=== PATIENT | female | born 1930 | race Caucasian/White ===

== ENCOUNTER 2017-03-20 11:22 | Outpatient (CLI) | payer MEDICARE, OTHER ==
--- NOTE | 2017-03-20 13:56 | Diagnostic Imaging Report ---
ZAC CAMACHO [facility] [address] [facility] [address] [address] Report Submission Date: March 20, 2017 11:58:43 AM CDT Patient Study Name: JOSE ALDRIDGE Date: March 20, 2017 11:39:29 AM CDT Modality Type: CR Gender: F Description: PELVIS : 34 Institution: [facility] Physician: ZAC CAMACHO Left hip 2 views Clinical history pain Technique AP and frog leg Findings: There is osteopenia. Degenerative arthritis is present the hip. No fracture lytic changes are seen. Arthritic changes are present the sacroiliac joint. Impression: Osteopenia. Degenerative arthritis Consider MRI for further evaluation Electronically signed on March 20, 2017 11:58:43 AM CDT by: Maxwell LYNN
--- NOTE | 2017-03-21 03:44 | Diagnostic Imaging Report ---
ZAC CAMACHO~ [facility] [address] [facility] [address] ~ ~ ~ ~ Report Submission Date: March 20, 2017 5:25:38 PM CDT Patient ~ Study Name: JOSE ALDRIDGE ~ Date: March 20, 2017 3:56:20 PM CDT ~ Modality Type: CR Gender: F ~ Description: LOWER EXTREMITY : 34 ~ Institution: [facility] Physician: ZAC CAMACHO ~ ~ ~ ~ Left knee Clinical history pain Technique AP lateral and sunrise views Findings: There is patellofemoral joint narrowing. Popliteal artery calcification is present. There is chondrocalcinosis. No fracture joint effusion is seen. Impression: Mild degenerative arthritis for the patient's age Prominent vascular calcification Chondrocalcinosis ~ Electronically signed on March 20, 2017 5:25:38 PM CDT by: Maxwell LYNN
== END 2017-03-20 11:24 ==
LOC: RAD 11:22
PROVIDERS: ATTEND Family Medicine
DX: M85.88 Other specified disorders of bone density and structure, other site (principal); M13.862 Other specified arthritis, left knee
CPT/HCPCS: 73562

== ENCOUNTER 2017-04-17 13:23 | Outpatient (CLI) | payer MEDICARE, OTHER ==
--- NOTE | 2017-04-17 16:27 | Diagnostic Imaging Report ---
[facility] [address] [facility] [address] [address] Report Submission Date: Apr 17, 2017 2:55:07 PM CDT Patient Study Name: JOSE ALDRIDGE Date: Apr 17, 2017 1:52:54 PM CDT Modality Type: CT\SR Gender: F Description: CT LEG W/O CONTRAST : 34 Institution: [facility] Physician: MUNIRA Examination: CT extremity History: Leg discomfort Comparison exams: Plain film dated 20 Mar 2017 Technique: Axial imaging with coronal and sagittal reconstruction. Findings: Degenerative changes involving the knee and ankle articulations. No disruption of the cortical margins. No expansile lesion. Few scattered soft tissue calcifications. No obvious soft tissue mass given technique. Impression: Articular degenerative changes. No evidence for cortical fracture or osseous lesion by CT sensitivity. Electronically signed on Apr 17, 2017 2:55:07 PM CDT by: Jason LYNN
== END 2017-04-17 13:30 ==
LOC: RAD 13:23
PROVIDERS: ATTEND Family Medicine
DX: M79.605 Pain in left leg (principal)
CPT/HCPCS: 73700

== ENCOUNTER 2017-05-06 08:23 | Outpatient (CLI) | payer MEDICARE, OTHER | END 2017-05-06 08:24 | LOC: OUT 08:23 | PROVIDERS: ATTEND General Practice | DX: N81.10 Cystocele, unspecified (principal); N81.6 Rectocele; N81.5 Vaginal enterocele | CPT/HCPCS: G0463 ==

== ENCOUNTER 2018-03-04 08:37 | Outpatient (CLI) | payer MEDICARE, OTHER | END 2018-03-04 08:40 | LOC: POD 08:37 | PROVIDERS: ATTEND Podiatrist Public Medicine | DX: L60.0 Ingrowing nail (principal); M79.675 Pain in left toe(s); M79.674 Pain in right toe(s); B35.1 Tinea unguium | CPT/HCPCS: 11721; G0463 ==

== ENCOUNTER 2019-06-10 19:45 | Outpatient (CLI) | payer MEDICARE, OTHER ==
[2019-06-10 19:55] LABS: BASOPHILS % 0.6 % (0.0-1.5); NEUTROPHILS # 6.1 # k/uL (1.4-7.7)
[2019-06-10 20:12] LABS: eGFR (Non-African) > 60
== END 2019-06-10 19:47 ==
LOC: LAB 19:45
PROVIDERS: ATTEND Family Medicine
DX: I10 Essential (primary) hypertension (principal); R56.9 Unspecified convulsions
CPT/HCPCS: 80053; 85025

== ENCOUNTER 2019-06-15 09:42 | Outpatient (CLI) | payer MEDICARE, OTHER ==
--- NOTE | 2019-06-15 10:15 | Diagnostic Imaging Report ---
ZAC CAMACHO [facility] [address] [facility] [address] [place], [place]. [address] Report Submission Date: Jun 15, 2019 10:10:35 AM CDT Patient Study Name: JOSE ALDRIDGE Date: Jun 15, 2019 9:51:26 AM CDT Modality Type: CT\SR Gender: F Description: CT BRAIN W/O CONTRAST : 34 Institution: [facility] Physician: ZAC CAMACHO Exam: CT brain without contrast. History: Seizure. Axial images through the brain are submitted along with sagittal and coronal reformatted images. The surrounding cisterns in the posterior fossa are prominent. The brainstem and cerebellum are of normal attenuation. In the supratentorial regions, no acute hemorrhage or mass effect is identified. The lateral ventricles and surrounding sulci are prominent. Confluent areas diminished attenuation adjacent to the lateral ventricles indicate small vessel disease. No extra- axial fluid collections are identified. Opacified right maxillary sinus is noted. No bony abnormalities are identified. Impression: Atrophy. Small vessel disease. Electronically signed on Jun 15, 2019 10:10:35 AM CDT by: Matthew LYNN
== END 2019-06-15 09:44 ==
LOC: RAD 09:42
PROVIDERS: ATTEND Family Medicine
DX: I99.8 Other disorder of circulatory system (principal)
CPT/HCPCS: 70450

== ENCOUNTER 2019-08-14 08:58 | Outpatient (CLI) | payer MEDICARE, OTHER ==
[2019-08-14 11:45] LABS: APPEARANCE,URINE CLEAR (CLEAR); COLOR,URINE YELLOW (YELLOW); OCCULT BLOOD,URINE NEGATIVE (NEGATIVE); UROBILINOGEN URINE 0.2 Eu (0.2-1.0)
== END 2019-08-14 09:05 ==
LOC: LAB 08:58
PROVIDERS: ATTEND Family Medicine
DX: F07.0 Personality change due to known physiological condition (principal); R41.82 Altered mental status, unspecified
CPT/HCPCS: 81002; 87086; 87186

== ENCOUNTER 2019-08-17 13:30 | Outpatient (CLI) | payer MEDICARE, OTHER ==
[2019-08-17 14:57] LABS: eGFR (Non-African) > 60
[2019-08-17 15:02] LABS: BASOPHILS % 1 % (0-2); GIANT PLATELETS PRESENT (NEGATIVE); SEGMENTED NEUTROPHILS % 66 % (39-79)
[2019-08-17 15:04] LABS: BASOPHILS % 0.6 % (0.0-1.5); NEUTROPHILS # 5.9 # k/uL (1.4-7.7)
== END 2019-08-17 13:35 ==
LOC: LAB 13:30
PROVIDERS: ATTEND Family Medicine
DX: N39.0 Urinary tract infection, site not specified (principal)
CPT/HCPCS: 36415; 80053; 85025; P9604

== ENCOUNTER 2019-09-24 14:42 | Emergency (ER) | payer MEDICARE, OTHER ==
--- NOTE | 2019-09-24 15:08 | ED Physician Documentation ---
Fall - HISTORIAN Historian: patient - HPI Stated Complaint: fall from standing position Chief Complaint: Fall Additional Information: Patient presents to ED via EMS from [facility] after falling. Patient has dementia and HTN. She has had issues with her balance for quite sometime due to Parkinsons and dementia. skilled nursing staff reports she fell from standing and hit her head. Reports no loss of consciousness and was ambulatory after the fall. Onset: just prior to arrival Where: home Context: lost balance r: moderate Associated Symptoms:: denies: no loss of consciousness Location of Pain/Injury: head Injury to Right Extremity: none Injury to Left Extremity: none - ROS CONST: no problems NEURO: denies: dizziness MS/SKIN/LYMPH: denies: weakness, numbness EYES/ENT: none CVS/RESP: denies: chest pain, shortness of breath GI/: denies: nausea, vomiting - PAST HX Past History: none Allergies/Adverse Reactions: Allergies Allergy/AdvReac Type Severity Reaction Status Date / Time buspirone [From BuSpar] Allergy Verified 09/24/19 14:52 - SOCIAL HX Smoking History: non-smoker Alcohol Use: none Drug Use: none - FAMILY HX Family History: none - VITAL SIGNS Vital Signs: Vital Signs Temp Pulse Resp BP Pulse Ox 98.3 F 89 20 173/55 98 09/24/19 14:46 09/24/19 14:46 09/24/19 14:46 09/24/19 15:03 09/24/19 14:46 - REVIEWED ASSESSMENTS Nursing Assessment Reviewed: Yes Vitals Reviewed: Yes ED Results Lab/Radiology - Orders Orders: ED Orders Category Date Time Status CT BRAIN W/O CONTRAST Stat Exams 09/24/19 Ordered Fall Physical Exam - Physical Exam General Appearance: no acute distress, alert Head: trauma (right forehead hematoma) Neck: non-tender, painless ROM Eye: PETE, EOMI ENT: no dental injury, no oral injury Resp/CVS: chest non-tender, breath sounds nml, no resp. distress, heart sounds nml Abdomen: soft, normal bowel sounds Neuro: motor nml, mood/affect nml, adz worker nml Skin: color nml Back: normal inspection Extremities: atraumatic, pelvis stable, hips non-tender Joint: joints nml - [place] Coma Score Eyes Open: Spontaneous Speech: Oriented Motor: Obeys Commands Discharge Clincal Impression: Traumatic hematoma of head Qualifiers: Encounter type: initial encounter Qualified Code(s): S00.93XA - Contusion of unspecified part of head, initial encounter Fall from standing Qualifiers: Encounter type: initial encounter Qualified Code(s): W19.XXXA - Unspecified fall, initial encounter Referrals: Mateusz Calix MD [Primary Care Provider] - 2 Days Additional Instructions: 1. Fall precautions. 2. Apply ice to affected area for next 3 days then heat to help with hematoma absorption. 3. Tylenol as needed for pain 4. Follow up with PCP within 1 week 5. Return to ER for new or worsening symptoms Condition: Stable Disposition: 01 HOME, SELF-CARE Decision to Admit: NO Date of Decison to Admit: 09/24/19 Decision Time: 15:57
--- NOTE | 2019-09-24 15:49 | Diagnostic Imaging Report ---
PATIENT MR#: [id number] PATIENT PATIENT NAME: JOSE ALDRIDGE DATE OF : 1930 REFERRING PHYSICIAN: Kylie Rivera EXAM DATE: 09/24/2019 ACCESSION NUMBER: [id number] EXAM DESCRIPTION: CT BRAIN W/O CONTRAST CT brain without IV contrast. Clinical history: Syncope and history of fall Radiation dose DLP 679 Prominent ventricular system with periventricular white matter disease process. No visible intracrani al bleed, acute infarct, midline shift or visible mass lesions. Right frontoparietal scalp hematoma without visible skull fractures. Mastoid air cells and visible sinuses are clear. Impression: Right frontoparietal scalp hematoma without visible skull fractures. Hydrocephalus without visible intracranial bleed or acute intracranial abnormalities. Periventricular white matter disease process. Read by: Dr. Mateusz Olivares Transcribed by: Transcribed Date: Electronically signed by: Dr. Mateusz Olivares Date signed: 09/24/2019 3:48:52 PM
[2019-09-24] MEDS: HYDROcodone /APAP 5/325 1 EACH TABLET PO ONE (16:13)
[2019-09-24 16:17] VITALS: BP 176/56
== END 2019-09-24 16:15 | disposition home or self-care (01) ==
LOC: ED 14:42
DX: S00.93XA Contusion of unspecified part of head, initial encounter (principal); W01.118A Fall on same level from slipping, tripping and stumbling with subsequent striking against other sharp object, initial encounter
CPT/HCPCS: 70450; 99282; 99283